=== PATIENT | female | born 1985 | race Caucasian/White ===

== ENCOUNTER 2017-03-10 04:01 | Emergency (ER) | payer OTHER | END 2017-03-10 07:20 | disposition home or self-care (01) | LOC: ER1 04:01 | DX: S62.665B Nondisplaced fracture of distal phalanx of left ring finger, initial encounter for open fracture (principal); X58.XXXA Exposure to other specified factors, initial encounter; Y92.69 Other specified industrial and construction area as the place of occurrence of the external cause; Y99.0 Civilian activity done for income or pay; Z23 Encounter for immunization | CPT/HCPCS: 12002; 29130; 73130; 90471; 90714; 96372; 99283; J1885 ==

== ENCOUNTER 2022-04-10 16:06 | Inpatient (IN) | payer BC, OTHER ==
[~2022-04-10] VITALS: Ht 170.2 cm; Wt 63.5 kg
[~2022-04-10 16:06] MED LIST: BENTYL 20MG TAB20 MG PO; DIFLUCAN150 MG PO; FLAGYL500 MG PO; VIBRAMYCIN100 MG PO; ZOFRAN ODT 4 MG4 MG SL
[2022-04-10 16:29] LABS: HEMOGLOBIN 13.9 gm/dl (12.3-15.3); RED BLOOD COUNT 4.22 M/UL (4.00-5.10); WHITE BLOOD COUNT 8.4 K/UL (4.5-11.0)
[2022-04-10 16:56] LABS: BUN/CREATININE RATIO 13 (0-10)
[2022-04-10 21:05] LABS: BUN/CREATININE RATIO 13 (0-10)
[2022-04-11 04:33] LABS: HEMOGLOBIN 12.5 gm/dl (12.3-15.3); RED BLOOD COUNT 3.85 M/UL (4.00-5.10); WHITE BLOOD COUNT 7.8 K/UL (4.5-11.0)
[2022-04-11 05:18] LABS: BUN/CREATININE RATIO 8 (0-10)
[2022-04-11] MEDS ORDERED: SINGULAIR10 MG PO (08:19)
[2022-04-11] MEDS ORDERED: LORATADINE10 MG PO (08:19)
[2022-04-11] MEDS ORDERED: ZYLOPRIM 300 M300 MG PO (08:19)
[2022-04-11] MEDS ORDERED: VOLTAREN EC 7575 MG PO (08:19)
[2022-04-11] MEDS ORDERED: GABAPENTIN600 MG PO (10:22)
--- NOTE | 2022-04-12 11:49 | NUR ---
PATIENT HAD AN OLOP EVAL TODAY 04/12/22. THEY STATED SHE SHOULD GO TO INPATIENT REHAB BUT SHE IS NOT HOLDABLE AND IF THE PATIENT STATES SHE DOESNT WANT TO GO SHE CAN STILL BE DISCHARGED. PATIENT STATED SHE WANTED TO GO HOME SO SHE CAN GO TO WORK TONIGHT. CASE MANAGEMENT SPOKE WITH HER AND GAVE HER INFORMATION ABOUT REHAB AND MENTAL HEALTH WHICH THE PATIENT TOOK.
== END 2022-04-12 13:51 | disposition home or self-care (01) | DRG 917 ==
LOC: ER1 16:06 → CDU 18:45 → CCU 19:22
PROVIDERS: Physician Assistant Medical; ADMIT Internal Medicine Infectious Disease
DX: T40.2X2A Poisoning by other opioids, intentional self-harm, initial encounter (principal); G92.9 Unspecified toxic encephalopathy; Z20.822 Contact with and (suspected) exposure to COVID-19; F19.10 Other psychoactive substance abuse, uncomplicated; T43.622A Poisoning by amphetamines, intentional self-harm, initial encounter; Z90.49 Acquired absence of other specified parts of digestive tract
CPT/HCPCS: 36415; 71045; 80053; 80307; 81001; 82550; 82553; 83735; 84443; 84484; 85025; 93005; 94760; 96374; 96375; 99285; C9113; G0480; J1630; J2060; J2405